=== PATIENT | female | born 1985 ===

== ENCOUNTER 2021-05-31 18:24 | Inpatient (IN) | payer SELFPAY ==
[~2021-05-31] VITALS: Ht 170.2 cm; Wt 80.2 kg
[2021-05-31 18:58] VITALS: BP 143/88
[2021-05-31 19:17] LABS: MICROSCOPIC INDICATED
[2021-05-31 19:25] LABS: AMPHETAMINE SCREEN, URINE Negative (Negative); BARBITURATE SCREEN, URINE Negative (Negative); BENZODIAZEPINE SCREEN, URINE Negative (Negative); CANNABINOID SCREEN, URINE Negative (Negative); COCAINE SCREEN, URINE Negative (Negative); METHADONE SCREEN, URINE Negative (Negative); OPIATE SCREEN, URINE Negative (Negative)
[2021-05-31] MEDS ORDERED: OXYcodone/APAP 10/325MG TABLET ONE (22:08)
[2021-05-31] MEDS ORDERED: OXYcodone/APAP 10/325MG TABLET PO ONE (22:30)
[2021-05-31] MEDS ORDERED: METHADONE 10 MG TABLET PO ONE (22:30)
[2021-05-31 23:00] VITALS: BP 134/78
[2021-05-31] MEDS ORDERED: MAALOX/HYOSCYAMINE/LIDOCAINE 45 ML BTL PO ONE (23:00)
[2021-05-31] MEDS ORDERED: OXYcodone IR 5MG TABLET PO PRN (23:30)
[2021-05-31] MEDS ORDERED: MELATONIN 5 MG TABLET PO PRN (23:30)
[2021-05-31] MEDS ORDERED: LIDODERM 5% PATCH TD PRN (23:30)
[2021-05-31] MEDS ORDERED: DOCUSATE 100 MG CAPSULE PO PRN (23:30)
[2021-05-31] MEDS ORDERED: BISACODYL 10 MG SUPP PR PRN (23:30)
[2021-05-31] MEDS ORDERED: ALUMINUM/MAG/SIMETHICONE 30 ML UDC PO PRN (23:30)
[2021-05-31] MEDS ORDERED: ONDANSETRON 2MG/ML, 2ML IVPush PRN (23:30)
[2021-06-01 00:45] LABS: BASOPHILS % (AUTO) 0 % (0-1); EOSINOPHILS % (AUTO) 0 % (1-7); LYMPHOCYTES % (AUTO) 8 % (22-44); MEAN CORPUSCULAR HEMOGLOBIN 28.5 pg (27.0-34.8); MEAN CORPUSCULAR HGB CONC 33.8 g/dL (32.4-35.8); MEAN PLATELET VOLUME 8.3 fL (7.4-10.4); MONOCYTES % (AUTO) 3 % (2-9); NEUTROPHILS % (AUTO) 89 % (42-75); PLATELET COUNT 346 x10^3/uL (130-400); RED BLOOD COUNT 4.61 x10^6/uL (3.82-5.3); RED CELL DISTRIBUTION WIDTH 13.8 % (9.6-15.2)
[2021-06-01 00:54] LABS: ALANINE AMINOTRANSFERASE 16 U/L (12-78); ALBUMIN 3.1 g/dL (3.4-5.0); ANION GAP 10 mmol/L (5-15); CALCIUM 9.5 mg/dL (8.5-10.1); CHLORIDE 101 mmol/L (98-107); CREATININE 0.44 mg/dL (0.55-1.02)
[2021-06-01 00:56] LABS: ALKALINE PHOSPHATASE 63 U/L (45-117); BILIRUBIN,TOTAL 0.3 mg/dL (0.2-1.0); INTERNATIONAL NORMALIZED RATIO 0.95 (0.93-1.1); PROTHROMBIN TIME 10.2 Seconds (9.6-11.5); TOTAL PROTEIN 7.7 g/dL (6.4-8.2)
[2021-06-01 01:59] VITALS: BP 132/74
[2021-06-01] MEDS ORDERED: ONDANSETRON ODT 4 MG PO PRN (05:00)
[2021-06-01 07:23] VITALS: BP 122/75
[2021-06-01] MEDS ORDERED: OXYcodone IR 5MG TABLET PO PRN (08:00)
[2021-06-01] MEDS ORDERED: POTASSIUM CHLORIDE 20 MEQ TAB.ER.PRT PO ONE (08:30)
[2021-06-01] MEDS: CEFTRIAXONE 1,000 MG in DEXTROSE 5% 50 ML IV SCH (10:30)
[2021-06-01] MEDS: METHADONE 10 MG TABLET PO SCH (10:31)
[2021-06-01 12:28] VITALS: BP 128/73
[2021-06-01 20:55] VITALS: BP 111/69
[2021-06-02 01:16] VITALS: BP 114/66
[2021-06-02 05:58] LABS: BASOPHILS % (AUTO) 1 % (0-1); EOSINOPHILS % (AUTO) 1 % (1-7); LYMPHOCYTES % (AUTO) 29 % (22-44); MEAN CORPUSCULAR HEMOGLOBIN 29.1 pg (27.0-34.8); MONOCYTES % (AUTO) 7 % (2-9); NEUTROPHILS % (AUTO) 62 % (42-75); PLATELET COUNT 322 x10^3/uL (130-400); RED BLOOD COUNT 4.59 x10^6/uL (3.82-5.3)
[2021-06-02 06:15] LABS: ANION GAP 3 mmol/L (5-15); CHLORIDE 108 mmol/L (98-107)
[2021-06-02 06:16] LABS: CREATININE 0.41 mg/dL (0.55-1.02)
[2021-06-02] MEDS: METHADONE 10 MG TABLET PO SCH (08:31)
[2021-06-02] MEDS: CEFTRIAXONE 1,000 MG in DEXTROSE 5% 50 ML IV SCH (08:32)
[2021-06-02 08:46] VITALS: BP 114/66
[2021-06-02] MEDS ORDERED: METH10TA2 PO (10:55)
[2021-06-02] MEDS ORDERED: PREN1CAP PO (10:58)
[2021-06-02] MEDS ORDERED: CEFD300C37 PO (15:55)
== END 2021-06-02 13:15 | disposition home or self-care (01) | DRG 832 ==
LOC: LDOP 18:24 → 4WST 22:39
PROVIDERS: ADMIT Internal Medicine; ATTEND Internal Medicine
DX: O99.282 Endocrine, nutritional and metabolic diseases complicating pregnancy, second trimester (principal); E87.1 Hypo-osmolality and hyponatremia; F11.20 Opioid dependence, uncomplicated; O23.42 Unspecified infection of urinary tract in pregnancy, second trimester; E87.6 Hypokalemia; Z3A.17 17 weeks gestation of pregnancy; Z79.899 Other long term (current) drug therapy; O99.322 Drug use complicating pregnancy, second trimester
CPT/HCPCS: 36415; 76805; 80048; 80053; 80307; 81001; 83735; 84100; 85025; 85610; 85730; 86592; 86762; 86803; 86850; 86900; 87086; 87340; 87806; G0378; J0696; J2405; Q0162; G0475

== ENCOUNTER 2021-06-04 00:45 | Emergency (ER) | payer SELFPAY ==
[~2021-06-04] VITALS: Ht 170.2 cm; Wt 78.0 kg
[~2021-06-04 00:45] MED LIST: CEFD300C37 PO; METH10TA2 PO; PREN1CAP PO
[2021-06-04 01:46] VITALS: BP 117/89
[2021-06-04] MEDS ORDERED: METHADONE 10 MG TABLET PO ONE (01:46)
--- NOTE | 2021-06-04 02:23 | NUR ---
Patient given discharge instructions and they have confirmed that they understand the instructions. Patient ambulatory with steady gait. NAD, all questions answered appropriately, denies additional needs at this time. No personal belongings left in room after discharge.
== END 2021-06-04 02:25 | disposition home or self-care (01) ==
LOC: ED 01:00
DX: O26.892 Other specified pregnancy related conditions, second trimester (principal); F11.23 Opioid dependence with withdrawal; F17.210 Nicotine dependence, cigarettes, uncomplicated; Z76.0 Encounter for issue of repeat prescription; R00.0 Tachycardia, unspecified; Z72.9 Problem related to lifestyle, unspecified; Z3A.18 18 weeks gestation of pregnancy
CPT/HCPCS: 99283; 99406